=== PATIENT | male | born 1990 | race African-American/Black ===

== ENCOUNTER 2017-12-21 08:26 | Emergency (ER) | payer OTHER ==
[2017-12-21 08:37] VITALS: BP 137/64; PULSE 66; RESP 18; TEMP 98.3
--- NOTE | 2017-12-21 08:55 | ED ---
General Adult HPI - General Chief complaint: Eye Problems Stated complaint: FB in rt eye Time Seen by Provider: 12/21/17 08:44 Source: patient, RN notes reviewed Mode of arrival: ambulatory Limitations: no limitations - History of Present Illness Initial comments: Patient 27-year-old male presented to the emergency room today with a chief complaint of some irritation to the left eye. He notes last night was at home watching TV. Patient states he tried to wash out. He does admit to a foreign body sensation. Was noted to some drainage and crusting over the eyelashes this morning. Patient denies any other complaints or symptoms. He denies any fever or chills. Denies any cough congestion, rhinorrhea, chest pain, abdominal pain, back pain. - Related Data Previous Rx's Medication Instructions Recorded Tobramycin 0.3% Ophth Soln [Tobrex 1 - 2 drop BOTH EYES Q4H 10 Days 12/21/17 0.3% Ophth Soln] ml Allergies Allergy/AdvReac Type Severity Reaction Status Date / Time No Known Allergies Allergy Verified 12/21/17 08:46 Review of Systems ROS Statement: Those systems with pertinent positive or pertinent negative responses have been documented in the HPI. ROS Other: All systems not noted in ROS Statement are negative. Past Medical History Past Medical History: No Reported History History of Any Multi-Drug Resistant Organisms: MRSA Date of last positivie culture/infection: 2007 MDRO Source:: left upper leg Past Surgical History: No Surgical Hx Reported Past Psychological History: No Psychological Hx Reported Smoking Status: Current some day smoker Past Alcohol Use History: Occasional Past Drug Use History: Marijuana General Exam - General Exam Comments Initial Comments: General: The patient is awake and alert, in no distress, and does not appear acutely ill. Eye: Pupils are equal, round and reactive to light, extra-ocular movements are intact. No nystagmus. Mild redness to the left conjunctiva with some green drainage at the corner and over the eyelashes. (Left eye was stained with fluorescein checked with Wood's lamp revealing no foreign bodies. Eyelids inverted.) Ears, nose, mouth and throat: There are moist mucous membranes and no oral lesions. Neck: The neck is supple, there is no tenderness or JVD. Musculoskeletal: Normal ROM, no tenderness. Strength 5/5. Sensation intact. Pulses equal bilaterally 2+. Neurological: A&O x 3. CN II-XII intact, There are no obvious motor or sensory deficits. Coordination appears grossly intact. Speech is normal. Skin: Skin is warm and dry and no rashes or lesions are noted. Psychiatric: Cooperative, appropriate mood & affect, normal judgment. Limitations: no limitations Course Vital Signs 12/21/17 08:34 Temperature 98.3 F Pulse Rate 66 Respiratory 18 Rate Blood Pressure 137/64 O2 Sat by Pulse 98 Oximetry Medical Decision Making - Medical Decision Making Patient's exam consistent with conjunctivitis. Will be started on eyedrops. Is advised follow-up with wildlife technician there is no improvement over the next 2 days. Advised to use drops to the right eye if symptoms begin in that eye as well. Advised return for any other concerns. Disposition Clinical Impression: Acute conjunctivitis Disposition: HOME SELF-CARE Condition: Good Instructions: Conjunctivitis (ED) Additional Instructions: Please use medication as discussed. Please follow-up with ophthalmology/family doctor in the next 2 days of symptoms have not improved. Please return to emergency room if the symptoms increase or worsen or for any other concerns. Prescriptions: Tobramycin 0.3% Ophth Soln [Tobrex 0.3% Ophth Soln] 1 - 2 drop BOTH EYES Q4H 10 Days ml Is patient prescribed a controlled substance at d/c from ED?: No Referrals: Brian Miller DO [Primary Care Provider] - 1-2 days Edna Amado MD [STAFF PHYSICIAN] - 1-2 days Time of Disposition: 08:53
== END 2017-12-21 09:05 | disposition home or self-care (01) ==
LOC: EC 08:26
DX: H10.32 Unspecified acute conjunctivitis, left eye (principal); F17.200 Nicotine dependence, unspecified, uncomplicated; Z86.14 Personal history of Methicillin resistant Staphylococcus aureus infection
CPT/HCPCS: 99283

== ENCOUNTER 2018-09-02 03:49 | Emergency (ER) | payer OTHER ==
[2018-09-02] MEDS ORDERED: HYDROcodone/APAP 5-325MG 1 EACH TAB PO STA (04:22)
--- NOTE | 2018-09-02 04:26 | ED ---
General Adult HPI - General Chief complaint: Extremity Problem,Nontraumatic Stated complaint: hip pain/back pain Time Seen by Provider: 09/02/18 03:59 Source: patient Mode of arrival: ambulatory Limitations: no limitations - Related Data Previous Rx's Medication Instructions Recorded Tobramycin 0.3% Ophth Soln [Tobrex 1 - 2 drop BOTH EYES Q4H 10 Days 12/21/17 0.3% Ophth Soln] ml HYDROcodone/APAP 5-325MG [[place] 1 tab PO Q6HR PRN 3 Days #6 tab 09/02/18 5-325] Allergies Allergy/AdvReac Type Severity Reaction Status Date / Time No Known Allergies Allergy Verified 09/02/18 03:56 Review of Systems ROS Statement: Those systems with pertinent positive or pertinent negative responses have been documented in the HPI. ROS Other: All systems not noted in ROS Statement are negative. Past Medical History Past Medical History: No Reported History History of Any Multi-Drug Resistant Organisms: MRSA Date of last positivie culture/infection: 2007 MDRO Source:: left upper leg Past Surgical History: No Surgical Hx Reported Past Psychological History: No Psychological Hx Reported Smoking Status: Current some day smoker Past Alcohol Use History: Occasional Past Drug Use History: Marijuana General Exam Limitations: no limitations Course Vital Signs 09/02/18 03:54 Temperature 97.9 F Pulse Rate 84 Respiratory 18 Rate Blood Pressure 136/81 O2 Sat by Pulse 99 Oximetry Medical Decision Making - Medical Decision Making 36-year-old -[place] male in no significant past medical history presents with left hip pain. Dictation was produced using [employer] dictation software. please excuse any grammatical, word or spelling errors. Chief Complaint: 36-year-old -Pakistani male in no significant past medical history presents with left hip pain. Patient has been evaluated for hip pain in the past. He states that he had an x-ray in the past showing His Left Hip. Patient States His Symptoms Are Severe. Denies Any Inciting Traumatic Event. Patient States He Was Walking around His House When He Immediately [place] His Left Hip started hurting. He fell to the ground History of Present Illness: 36-year-old -[place] male in no significant past medical history presents with left hip pain. Patient has been evaluated for hip pain in the past. He states that he had an x-ray in the past showing His Left Hip. Patient States His Symptoms Are Severe. Denies Any Inciting Traumatic Event. Patient States He Was Walking around His House When He Immediately [place] His Left Hip started hurting. He fell to the ground. The ROS documented in this emergency department record has been reviewed and confirmed by me. Those systems with pertinent positive or negative responses have been documented in the HPI. All other systems are other negative and/or noncontributory. PHYSICAL EXAM: General Impression: Alert and oriented x3, acute distress secondary to pain HEENT: Normocephalic atraumatic, extra-ocular movements intact, pupils equal and reactive to light bilaterally, mucous membranes moist. Cardiovascular: Heart regular rate and rhythm, S1&S2 audible, no murmurs, rubs or gallops Chest: Lungs clear to auscultation bilaterally, no rhonchi, no wheeze, no rales Abdomen: Bowel sounds present, abdomen soft, non-tender, non-distended, no organomegaly Musculoskeletal: Pulses present and equal in all extremities, no peripheral edema, tenderness to palpation over the left gluteal area Motor: Power 5/5 bilaterally, no focal deficits noted Neurological: CN II-XII grossly intact, no focal motor or sensory deficits noted Skin: Intact with no visualized rashes Psych: Normal affect and mood ED course: 28-year-old -[place] male presents with left hip pain. Vital signs upon arrival are within acceptable limits. Clinical examination is consistent with hip strain. Patient given [place] and Toradol. Patient's symptoms are mildly improved however he said some pain. Computed tomography scan of the hip shows no acute processes. Patient prescription for crutches, analgesic oral medications. Patient also given a work note. He is advised to rest, and ice the area. Disposition Clinical Impression: Hip strain Disposition: HOME SELF-CARE Condition: Good Instructions: Hip Pain (ED) Prescriptions: HYDROcodone/APAP 5-325MG [[place] 5-325] 1 tab PO Q6HR PRN 3 Days #6 tab PRN Reason: Severe Pain Is patient prescribed a controlled substance at d/c from ED?: Yes Referrals: Brian Milelr DO [Primary Care Provider] - 1-2 days Time of Disposition: 06:07
[2018-09-02] MEDS ORDERED: KETOROLAC 30 MG/ML 1 ML VIAL IM STA (04:58)
--- NOTE | 2018-09-02 05:44 | CT ---
EXAMINATION TYPE: CT hip LT wo con DATE OF EXAM: 09/02/2018 COMPARISON: No HISTORY: Left hip pain. No known injury. CT DLP: 451.5 mGycm Automated exposure control for dose reduction was used. FINDINGS: Multiple axial sections were obtained from the mid ileum to the mid shaft of the femur with no contra st. The acetabulum appears intact. Proximal femur and hip joint appear intact. There is no evidence o f a soft tissue mass. There is no evidence of hip dysplasia. I see no bony destructive process. The l eft sacroiliac joint appears normal. IMPRESSION: NORMAL CT SCAN OF THE LEFT HIP JOINT.
[2018-09-02 07:19] VITALS: BP 93/55; PULSE 80; RESP 16; TEMP 98.3
== END 2018-09-02 06:57 | disposition home or self-care (01) ==
LOC: EC 03:49
DX: S76.012A Strain of muscle, fascia and tendon of left hip, initial encounter (principal); F17.200 Nicotine dependence, unspecified, uncomplicated; Z86.14 Personal history of Methicillin resistant Staphylococcus aureus infection; W19.XXXA Unspecified fall, initial encounter; Y93.01 Activity, walking, marching and hiking; Y92.009 Unspecified place in unspecified non-institutional (private) residence as the place of occurrence of the external cause
CPT/HCPCS: 73700; 99283; 96372; J1885

== ENCOUNTER 2018-11-04 08:32 | Day surgery (SDC) | payer OTHER ==
[2018-10-31 10:16] VITALS: BMI 23.7
[~2018-11-04 08:32] MED LIST: LACTATED RINGERS 1,000 ML IV SCH; LIDOCAINE 1% 20 ML VIAL (10MG/ML) FOR IV START INTRADERMA PRN
[2018-11-04 08:42] VITALS: TEMP 98.3
[2018-11-04] MEDS ORDERED: LACTATED RINGERS 1,000 ML IV ONE (08:42)
[2018-11-04] MEDS ORDERED: MIDAZOLAM 2 MG/2 ML VIAL ONE (08:53)
[2018-11-04] MEDS ORDERED: fentaNYL (PF) 50 MCG/ML 2 ML AMP ONE (08:53)
[2018-11-04] MEDS ORDERED: PROPOFOL 10 MG/ML 20 ML VIAL IV ONE (08:53)
[2018-11-04] MEDS ORDERED: LIDOCAINE 1% INJ 10MG/ML (20 ML MDV) ONE (08:53)
--- NOTE | 2018-11-04 08:57 | P.GSHP ---
History of Present Illness H&P Date: 11/04/18 Chief Complaint: GERD, abdominal pain This is a 28-year-old male who presents today for EGD and colonoscopy. Patient points of GERD. He is also complaints of abdominal pain. The abdominal pain is located electrocautery and epigastric area. He denies any rectal bleeding. Past Medical History Past Medical History: No Reported History Additional Past Medical History / Comment(s): abdominal pain History of Any Multi-Drug Resistant Organisms: MRSA Date of last positivie culture/infection: 2007 MDRO Source:: left upper leg Past Surgical History: No Surgical Hx Reported Past Anesthesia/Blood Transfusion Reactions: No Reported Reaction Additional Past Anesthesia/Blood Transfusion Reaction / Comment(s): no anesthesia prior Smoking Status: Current some day smoker - Past Family History Mother Family Medical History: Unable to Obtain Additional Family Medical History / Comment(s): patient was adopted Medications and Allergies Home Medications Medication Instructions Recorded Confirmed Type No Known Home Medications 10/31/18 10/31/18 History Allergies Allergy/AdvReac Type Severity Reaction Status Date / Time No Known Allergies Allergy Verified 10/31/18 10:14 Surgical - Exam Vital Signs Temp Pulse Resp BP Pulse Ox 98.3 F 71 18 129/61 95 11/04/18 08:41 11/04/18 08:41 11/04/18 08:41 11/04/18 08:41 11/04/18 08:41 - General well developed, well nourished, no distress - Eyes PERRL - ENT normal pinna - Neck no masses - Respiratory normal expansion - Cardiovascular Rhythm: regular - Abdomen Abdomen: soft, non tender Assessment and Plan Assessment: GERD, dull pain. We'll perform EGD and colonoscopy.
--- NOTE | 2018-11-04 09:15 | P.OP ---
Date of Procedure: 11/04/18 Preoperative Diagnosis: GERD Abdominal pain Postoperative Diagnosis: Sliding hiatal hernia Mild esophagitis Mild gastritis Normal colon Procedure(s) Performed: EGD Colonoscopy Anesthesia: MAC Surgeon: Adria Espinoza Pathology: other (Antrum, esophagus) Condition: stable Disposition: PACU Description of Procedure: PROCEDURE: The patient was placed on the endoscopy table in the lateral position. Digital rectal examination was performed which revealed no abnormalities. The prostate was symmetrical without nodules. Flexible colonoscope was then placed in the patient's anus and passed throughout the entire colon. The ileocecal valve was visualized. The cecum, ascending, transverse, descending and sigmoid colon were normal. The rectum was normal as well. There were no masses, polyps or diverticula noted in the entire colon. Next, the gastroscope placed oropharynx and passed in the esophagus and into the stomach. Scope was then placed through the pylorus. The first and second portion of the duodenum appeared normal. Scope was then brought back the antrum and this appeared mildly inflamed. A biopsies was performed. The scope was then retroflexed and the remainder of the stomach appeared normal. There was a small sliding hiatal hernia. The GE junction was at 39 cm. The distal esophagus was minimal inflamed a biopsies performed. The proximal esophagus appeared normal. Scope was withdrawn for patient.
[2018-11-04 09:24] VITALS: RESP 16
[2018-11-04 09:52] VITALS: BP 110/61; PULSE 53
== END 2018-11-04 10:05 | disposition home or self-care (01) ==
LOC: ORWHC2ENDO 08:32
PROVIDERS: ATTEND Surgery
DX: K29.50 Unspecified chronic gastritis without bleeding (principal); K44.9 Diaphragmatic hernia without obstruction or gangrene; K21.0 Gastro-esophageal reflux disease with esophagitis; F17.200 Nicotine dependence, unspecified, uncomplicated; Z86.14 Personal history of Methicillin resistant Staphylococcus aureus infection
CPT/HCPCS: 88305; 45378; 43239; J2250; J2001; J3010; J2704

== ENCOUNTER 2018-12-12 08:06 | Inpatient (IN) | payer OTHER ==
[~2018-12-12 08:06] MED LIST changes: +DEXAMETHASONE SOD PHOSPHATE 10 MG/ML 1 ML VIAL IV ONE; +HEPARIN SODIUM,PORCINE 5,000 UNIT/ML 1 ML VIAL SQ ONE; -LACTATED RINGERS 1,000 ML IV SCH; +ONDANSETRON 4 MG/2 ML VIAL IVP ONE; +Pre Op ABX Message 1 EACH MISC MISCELLANE ONE; +SCOPOLAMINE 1.5MG/72HR PATCH TRANSDERM ONE; +ceFAZolin IN SWFI 2 GM/20 ML SYRINGE IVP ONE
[2018-12-12] MEDS: LACTATED RINGERS 1,000 ML IV SCH ×2 (08:35→23:33)
--- NOTE | 2018-12-12 09:19 | P.GSHP ---
History of Present Illness H&P Date: 12/12/18 Chief Complaint: GERD This is a 28-year-old male referred from Dr. Brian Miller. The patient has had long-standing problems with reflux esophagitis. The patient underwent recent EGD is found have evidence of esophagitis. Patient has been well informed on the procedure of laparoscopic Faye fundoplication. The patient is aware the risk of the conversion to the open procedure, risk of injury to the stomach, liver and spleen. The patient is also a risk of recurrent GERD and dysphagia symptoms. The patient understands there is a postoperative diet of full liquids for 2 weeks after surgery. Past Medical History Past Medical History: No Reported History Additional Past Medical History / Comment(s): abdominal pain History of Any Multi-Drug Resistant Organisms: MRSA Date of last positivie culture/infection: 2007 MDRO Source:: left upper leg Past Surgical History: No Surgical Hx Reported Past Anesthesia/Blood Transfusion Reactions: No Reported Reaction Additional Past Anesthesia/Blood Transfusion Reaction / Comment(s): no anesthesia prior Smoking Status: Current some day smoker - Past Family History Mother Family Medical History: Unable to Obtain Additional Family Medical History / Comment(s): patient was adopted Medications and Allergies Home Medications Medication Instructions Recorded Confirmed Type No Known Home Medications 10/31/18 12/12/18 History Allergies Allergy/AdvReac Type Severity Reaction Status Date / Time No Known Allergies Allergy Verified 12/12/18 08:17 Surgical - Exam Vital Signs Temp Pulse Resp BP Pulse Ox 98.0 F 73 16 127/63 98 12/12/18 08:29 12/12/18 08:29 12/12/18 08:29 12/12/18 08:29 12/12/18 08:29 - General well developed, well nourished, no distress - Eyes PERRL - ENT normal pinna - Neck no masses - Respiratory normal expansion - Cardiovascular Rhythm: regular - Abdomen Abdomen: soft, non tender Assessment and Plan Assessment: GERD. We'll perform laparoscopic Faye fundoplication.
[2018-12-12] MEDS ORDERED: BUPIVACAIN-EPI 0.25%-1:200,000 30 ML VIAL SQ ONE ×2 (09:47→10:29)
[2018-12-12] MEDS ORDERED: ROCURONIUM BROMIDE 10 MG/ML 10 ML VIAL IV ONE (09:58)
[2018-12-12] MEDS ORDERED: PROPOFOL 10 MG/ML 20 ML VIAL IV ONE (09:58)
[2018-12-12] MEDS ORDERED: fentaNYL (PF) 50 MCG/ML 2 ML AMP ONE (09:58)
[2018-12-12] MEDS ORDERED: GLYCOPYRROLATE 0.2 MG/ML 2 ML VIAL ONE (09:58)
[2018-12-12] MEDS ORDERED: NEOSTIGMINE 1 MG/ML 10 ML VIAL ONE (09:58)
[2018-12-12] MEDS ORDERED: SUCCINYLCHOLINE CHLORIDE 100 MG/5 ML SYR IV ONE (09:58)
[2018-12-12] MEDS ORDERED: LIDOCAINE 1% INJ 10MG/ML (20 ML MDV) ONE (09:58)
[2018-12-12] MEDS ORDERED: MIDAZOLAM 2 MG/2 ML VIAL ONE (09:58)
[2018-12-12] MEDS ORDERED: LIDOCAINE 2%-EPI 1:200,000 20 ML VIAL SQ ONE (10:29)
[2018-12-12] MEDS ORDERED: LACTATED RINGERS 1,000 ML IV ONE (11:08)
--- NOTE | 2018-12-12 11:08 | P.OP ---
Date of Procedure: 12/12/18 Preoperative Diagnosis: GERD Postoperative Diagnosis: GERD Procedure(s) Performed: Laparoscopic Faye fundal plication Anesthesia: AMPARO Surgeon: Adria Espinoza Estimated Blood Loss (ml): 5 Pathology: none sent Condition: stable Disposition: PACU Description of Procedure: The patient was placed on the operating table in the supine position. The patient received general anesthesia. And was placed in dorsal lithotomy position. The patient was prepped and draped in the usual sterile fashion. The skin incision sites were anesthetized with 1% local Xylocaine. The skin was incised in the left periumbilical area and then using a blade less 5 mm trocar under direct visualization panel cavity was entered. After adequate insufflation the laparoscope was then placed into the peritoneal cavity. Next a 5 mm trochars placed in the right epigastric position. Another 5 millimeter trocar the right lateral position. Another 5 millimeter trocar in the left lateral position a 5 mm trocar is placed in the left epigastric position. And then the initial 5 mm trocar was exchanged for a 10 mm trocar. The left lateral lobe liver was retracted. The hernia was seen. The crural defect was then dissected using the Harmonic scissors device. A 360 crural dissection was p erformed the esophagus stomach was reduced back into the peritoneal Cavity. The crural defect was then closed using 2-0 Ethibond suture. Next the fundus of the stomach was mobilized using the [place] scissors device. and then a 58-Syrian bougie dilator was placed oropharynx passed into the esophagus and stomach the fundal plication wrap was then performed by grasping the fundus posteriorly and bringing it around the esophagus and stomach fundoplication was then performed using 2-0 Ethibond suture. Care was taken that the fundal location rested over top of the intra-abdominal esophagus. There was no injury seen to the stomach or esophagus. The dilator was then withdrawn. The abdomen was irrigated there is no bleeding seen. The trochars were then withdrawn and then skin incision sites were closed using 3-0 Monocryl suture Steri-Strips are applied. Patient thought procedure well and sent to recovery room in stable condition.
[2018-12-12] MEDS ORDERED: ONDANSETRON 4 MG/2 ML VIAL IVP PRN (11:09)
[2018-12-12] MEDS: HYDROmorphone 0.5 MG/0.5 ML SYRINGE IVP PRN ×4 (11:46→14:46)
--- NOTE | 2018-12-12 14:37 | FL ---
EXAMINATION TYPE: FL esophagus cervic/pharynx DATE OF EXAM: 12/12/2018 CLINICAL HISTORY: Status post Faye fundoplication TECHNIQUE: Esophagram is performed utilizing Isovue 300. A total of 1.32 minutes of fluoroscopic time was utilized during procedure. 27 fluoroscopic images were saved during the examination. FINDINGS: The patient swallowed contrast without difficulty. Upper esophageal peristalsis and motili ty are within normal limits. However there is marked delayed transit through the surgical site at the gastroesophageal junction with only diminutive stream of flow after prolonged imaging time. There is no evidence of contrast extravasation to suggest leak. No persistent hiatal hernia is seen. Patient describes abdominal pain. IMPRESSION: 1. Severe delay at the postoperative site/gastroesophageal junction likely related to postoperative e meme. The patient did experience pain and only diminutive stream of flow is seen through the postsurg ical site after prolonged imaging time. 2. No evidence of leak at this time status post Hakan fundoplication surgery earlier today.
[2018-12-12] MEDS ORDERED: DEXAMETHASONE SOD PHOSPHATE 4 MG/ML 1 ML VIAL IV PRN (16:11)
[2018-12-12] MEDS: HYDROmorphone 1 MG/ML 1 ML SYRINGE IVP PRN ×2 (18:40→21:43)
[2018-12-12] MEDS: D5-0.45% NACL WITH KCL 20MEQ/L 1,000 ML IV SCH ×2 (18:42→23:32)
[2018-12-12] MEDS: DEXAMETHASONE SOD PHOSPHATE 4 MG/ML 1 ML VIAL IV SCH (20:52)
[2018-12-13] MEDS: DEXAMETHASONE SOD PHOSPHATE 4 MG/ML 1 ML VIAL IV SCH ×6 (00:47→19:34)
[2018-12-13] MEDS: HYDROmorphone 1 MG/ML 1 ML SYRINGE IVP PRN ×6 (00:47→21:51)
[2018-12-13] MEDS: HEPARIN SODIUM,PORCINE 5,000 UNIT/ML 1 ML VIAL SQ SCH ×4 (00:47→15:02)
[2018-12-13] MEDS: D5-0.45% NACL WITH KCL 20MEQ/L 1,000 ML IV SCH (04:38)
--- NOTE | 2018-12-13 08:56 | FL ---
Single contrast esophagram EXAMINATION TYPE: FL UGI w esophagus DATE OF EXAM: 12/13/2018 8:50 AM COMPARISON: December 12, 2018 CLINICAL HISTORY: Status post Hakan fundoplication s/p hakan x [address] Day. 1.10 min fl time. 50 ml [id number] lot#[id number]. EXP Aug 2021 The patient ingested contrast without difficulty or delay. Noted are changes of Hakan fundoplicatio n. Again noted is evidence for incomplete obstruction at the level of Hakan fundoplication felt to b e moderate to severe in degree. Overall no significant change when compared to prior examination. Sma ll amount of free air or redemonstrated. IMPRESSION: Again noted is evidence for incomplete obstruction at the level of Hakan fundoplication felt to be moderate to severe in degree. Overall no significant change when compared to prior examina tion.
--- NOTE | 2018-12-13 09:10 | P.PN ---
Subjective Progress Note Date: 12/13/18 CHIEF COMPLAINT: GERD HISTORY OF PRESENT ILLNESS: 28-year-old male who underwent laparoscopic Faye fundoplication by Dr. Espinoza on 12/12/2018. POD #1. Patient underwent esophagram yesterday revealing obstruction. Patient was started on Decadron 4 mg IV every 4 hours. Patient states he has been tolerating a small amount of ice chips but states it takes a while for it to go down and he feels that sitting in his chest. Repeat esophagram this morning reveals persistent incomplete obstruction. PHYSICAL EXAM: VITAL SIGNS: Reviewed. GENERAL: Well-developed in no acute distress. HEENT: No sclera icterus. Extraocular movements grossly intact. Moist buccal mucosa. Head is atraumatic, normocephalic. ABDOMEN: Soft. Nondistended. Nontender. Laparoscopic incision sites clean dry and intact. NEUROLOGIC: Alert and oriented. Cranial nerves II through XII grossly intact. ASSESSMENT: 1. GERD, status post laparoscopic Faye fundoplication PLAN: 1. Continue ice chips as tolerated. Continue IV fluids at 100cc/hr. 2. Pain control. Continue dilaudid. 3. Incentive spirometry 4. Activity as tolerated 5. Continue Decadron. Add Reglan. 6. Discharge held today due to inability to tolerate liquids and risk for dehydration secondary to persistent incomplete obstruction secondary to postoperative edema. Continue Decadron. Repeat esophagram tomorrow morning. Nurse practitioner note has been reviewed by physician. Signing provider agrees with the documented findings, assessment, and plan of care. Objective - Vital Signs Vital signs: Vital Signs Temp 97.7 F 12/13/18 07:00 Pulse 59 L 12/13/18 07:00 Resp 16 12/13/18 07:00 BP 105/68 12/13/18 07:00 Pulse Ox 98 12/13/18 07:00 Intake & Output 12/12/18 12/13/18 12/13/18 18:59 06:59 18:59 Intake Total 1800 2330 Output Total 10 Balance 1790 2330 Intake: IV 1800 Intake, IV Titration 1250 Amount D5-0.45% NaCl with KCl 1250 20Meq/l 1,000 ml @ 125 mls/hr IV .Q8H VANESSA Rx#: [id number] Oral 1080 Output: Estimated Blood Loss 10 Other: Voiding Method Toilet # Voids 3
[2018-12-13] MEDS: SODIUM CHLORIDE 0.9% 1,000 ML IV SCH ×2 (09:15→19:34)
[2018-12-13] MEDS: METOCLOPRAMIDE 5 MG/ML 2 ML VIAL IVP SCH ×2 (11:14→17:37)
[2018-12-14] MEDS: METOCLOPRAMIDE 5 MG/ML 2 ML VIAL IVP SCH ×5 (00:33→23:11)
[2018-12-14] MEDS: HEPARIN SODIUM,PORCINE 5,000 UNIT/ML 1 ML VIAL SQ SCH ×4 (00:33→23:12)
[2018-12-14] MEDS: DEXAMETHASONE SOD PHOSPHATE 4 MG/ML 1 ML VIAL IV SCH ×7 (00:33→23:11)
[2018-12-14] MEDS: SODIUM CHLORIDE 0.9% 1,000 ML IV SCH ×2 (04:53→13:38)
--- NOTE | 2018-12-14 09:09 | FL ---
EXAMINATION TYPE: FL UGI w esophagus DATE OF EXAM: 12/14/2018 COMPARISON: NONE HISTORY: Status post Domenica fundoplication TECHNIQUE: A single contrast UGI study is performed. FINDINGS: The patient drank contrast with some discomfort due to esophageal spasm. There is moderate holdup of egress of barium from the esophagus into the stomach. There is a small amount of free air. The ligament of Treitz is in the normal location. No extravasation was identified. IMPRESSION: STATUS POST DOMENICA FUNDOPLICATION.
[2018-12-14] MEDS: HYDROmorphone 1 MG/ML 1 ML SYRINGE IVP PRN ×5 (09:21→19:12)
--- NOTE | 2018-12-14 16:17 | P.PN ---
Subjective Progress Note Date: 12/14/18 CHIEF COMPLAINT: Status post Faye fundoplasty HISTORY OF PRESENT ILLNESS: The patient is a 28-year-old male status post Faye fundoplasty, 12/12/18. He still reports chest pain and dysphagia with swallowing. He is currently on ice chips. ROS: No fevers or chills. No weakness. PHYSICAL EXAM: VITAL SIGNS: Reviewed CONSTITUTIONAL: Well developed and in no acute distress. EYES: Conjuctivae without sclera icterus. Extraocular movements grossly intact. HEAD, EARS, NOSE, THROAT: Moist buccal mucosa. Head is atraumatic, normocephalic. Hears conversational speech. No nasal drainage. NECK: Supple. No thyroidomegaly. RESPIRATORY: Non-labored respirations and equal bilateral excursions. CARDIOVASCULAR: Palpable 2+ radial pulses. Regular rate. Regular rhythm. ABDOMEN: Incisions clean dry and intact. Soft. MUSCULOSKELETAL: No gross deformity of the lower extremities noted. No clubbi ng. No cyanosis. SKIN: Good skin turgor. Well perfused. NEUROLOGIC: Cranial nerves I through XII grossly intact. PSYCH: Appropriate affect. Alert and oriented to person, place and time. CLINCAL LABS: None STUDIES: Upper GI demonstrates an obstruction along the GE junction ASSESSMENT: 1. Status post Faye fundoplasty with esophageal obstruction PLAN: 1. Anti-spasmodic medication Levsin for esophageal spasms 2. Simethicone drops for gas 3. Continue ice chips Objective - Vital Signs Vital signs: Vital Signs Temp 97.4 F L 12/14/18 14:19 Pulse 58 L 12/14/18 14:19 Resp 16 12/14/18 14:19 BP 116/71 12/14/18 14:19 Pulse Ox 97 12/14/18 14:19 Intake & Output 12/13/18 12/14/18 12/14/18 18:59 06:59 18:59 Intake Total 1480 800 Balance 1480 800 Weight 79 kg Intake: IV 800 Sodium Chloride 0.9% 1, 800 000 ml @ 100 mls/hr IV . Q10H VANESSA Rx#:[id number] Intake, IV Titration 1000 Amount Sodium Chloride 0.9% 1, 1000 000 ml @ 100 mls/hr IV . Q10H VANESSA Rx#:[id number] Oral 480 Other: Voiding Method Toilet Toilet # Voids 1 2 1
[2018-12-14 16:50] LABS: Anion Gap 7 mmol/L; Blood Urea Nitrogen 16 mg/dL (9-20); Calcium 9.5 mg/dL (8.4-10.2); Carbon Dioxide 27 mmol/L (22-30); Chloride 104 mmol/L (98-107); Glucose 100 mg/dL (74-99); Magnesium 1.9 mg/dL (1.6-2.3); Phosphorus 3.6 mg/dL (2.5-4.5); Potassium 4.3 mmol/L (3.5-5.1); Sodium 138 mmol/L (137-145)
[2018-12-14] MEDS: SIMETHICONE 40 MG/0.6 ML DROPS 2,000 MG/30 ML BOTTLE PO SCH ×2 (17:48→21:10)
[2018-12-14] MEDS: HYOSCYAMINE ORAL DROPS 1.875 MG/15 ML BOTTLE PO SCH ×3 (17:49→23:10)
[2018-12-15] MEDS: HYOSCYAMINE ORAL DROPS 1.875 MG/15 ML BOTTLE PO SCH ×6 (05:39→23:37)
[2018-12-15] MEDS: METOCLOPRAMIDE 5 MG/ML 2 ML VIAL IVP SCH ×5 (05:40→23:37)
[2018-12-15] MEDS: DEXAMETHASONE SOD PHOSPHATE 4 MG/ML 1 ML VIAL IV SCH ×6 (05:40→23:37)
[2018-12-15] MEDS: SODIUM CHLORIDE 0.9% 1,000 ML IV SCH ×3 (05:43→18:11)
[2018-12-15] MEDS: SIMETHICONE 40 MG/0.6 ML DROPS 2,000 MG/30 ML BOTTLE PO SCH ×4 (08:40→21:46)
[2018-12-15] MEDS: HEPARIN SODIUM,PORCINE 5,000 UNIT/ML 1 ML VIAL SQ SCH ×3 (08:41→23:37)
[2018-12-15] MEDS: HYDROmorphone 1 MG/ML 1 ML SYRINGE IVP PRN ×3 (09:42→15:31)
--- NOTE | 2018-12-15 11:41 | P.PN ---
Subjective Progress Note Date: 12/15/18 CHIEF COMPLAINT: Status post Faye fundoplasty HISTORY OF PRESENT ILLNESS: The patient is a 28-year-old male status post Faye fundoplasty, 12/12/18. He had edema from his fundoplication including int ermittent esophageal obstruction. He was placed on Levsin and simethicone drops. Obstruction now resolved. No further reports of chest pain or dysphasia. ROS: No fevers or chills. No weakness. No abdominal pain PHYSICAL EXAM: VITAL SIGNS: Reviewed CONSTITUTIONAL: Well developed and in no acute distress. EYES: Conjuctivae without sclera icterus. Extraocular movements grossly intact. HEAD, EARS, NOSE, THROAT: Moist buccal mucosa. Head is atraumatic, normocephalic. Hears conversational speech. No nasal drainage. NECK: Supple. No thyroidomegaly. RESPIRATORY: Non-labored respirations and equal bilateral excursions. CARDIOVASCULAR: Palpable 2+ radial pulses. Regular rate. Regular rhythm. ABDOMEN: Incisions clean dry and intact. Soft. MUSCULOSKELETAL: No gross deformity of the lower extremities noted. No clubbing. No cyanosis. SKIN: Good skin turgor. Well perfused. NEUROLOGIC: Cranial nerves I through XII grossly intact. PSYCH: Appropriate affect. Alert and oriented to person, place and time. CLINCAL LABS: Labs within normal limits ASSESSMENT: 1. Status post Faye fundoplasty with esophageal obstruction PLAN: 1. Continue antispasmodic medication including simethicone 2. Will start clear liquid diet Faye diet 3. I personally reviewed the dietitian handout where eggs and soft foods are excluded Objective - Vital Signs Vital signs: Vital Signs Temp 97.7 F 12/15/18 07:00 Pulse 77 12/15/18 07:00 Resp 16 12/15/18 07:00 BP 129/73 12/15/18 07:00 Pulse Ox 98 12/15/18 07:00 Intake & Output 12/14/18 12/15/18 12/15/18 18:59 06:59 18:59 Intake Total 800 1150 Balance 800 1150 Intake: IV 800 1150 Sodium Chloride 0.9% 1, 800 1150 000 ml @ 100 mls/hr IV . Q10H VANESSA Rx#:[id number] Other: Voiding Method Toilet Toilet # Voids 3 - Labs CBC & Chem 7: 12/14/18 16:22 Labs: Abnormal Lab Results - Last 24 Hours (Table) 12/14/18 Range/Units 16:22 Glucose 100 H (74-99) mg/dL
[2018-12-15] MEDS: NICOTINE 21MG/24HR PATCH TRANSDERM SCH (16:26)
[2018-12-16] MEDS: DEXAMETHASONE SOD PHOSPHATE 4 MG/ML 1 ML VIAL IV SCH ×6 (05:08→23:02)
[2018-12-16] MEDS: METOCLOPRAMIDE 5 MG/ML 2 ML VIAL IVP SCH ×4 (05:08→23:01)
[2018-12-16] MEDS: HYOSCYAMINE ORAL DROPS 1.875 MG/15 ML BOTTLE PO SCH ×6 (05:08→23:01)
[2018-12-16] MEDS: SODIUM CHLORIDE 0.9% 1,000 ML IV SCH ×2 (07:45→16:01)
[2018-12-16] MEDS: SIMETHICONE 40 MG/0.6 ML DROPS 2,000 MG/30 ML BOTTLE PO SCH ×4 (07:49→20:19)
[2018-12-16] MEDS: HEPARIN SODIUM,PORCINE 5,000 UNIT/ML 1 ML VIAL SQ SCH ×3 (07:49→23:01)
[2018-12-16] MEDS: NICOTINE 21MG/24HR PATCH TRANSDERM SCH (07:50)
[2018-12-16 10:55] VITALS: BMI 22.9
--- NOTE | 2018-12-16 11:29 | P.PN ---
Subjective Progress Note Date: 12/16/18 CHIEF COMPLAINT: GERD HISTORY OF PRESENT ILLNESS: 28-year-old male who underwent laparoscopic Faye fundoplication by Dr. Espinoza on 12/12/2018. Patient continues to repeat difficulty swallowing. He states it feels like the liquid is just sitting in his chest and takes 30 seconds or a minute for a sip of liquid to go down. He states sometimes he has to burp in order for the liquid to go down. PHYSICAL EXAM: VITAL SIGNS: Reviewed. GENERAL: Well-developed in no acute distress. HEENT: No sclera icterus. Extraocular movements grossly intact. Moist buccal mucosa. Head is atraumatic, normocephalic. ABDOMEN: Soft. Nondistended. Nontender. Laparoscopic incision sites clean dry and intact. NEUROLOGIC: Alert and oriented. Cranial nerves II through XII grossly intact. ASSESSMENT: 1. GERD, status post laparoscopic Faye fundoplication PLAN: 1. Continue IV fluids 2. Continue clear liquid diet 3. Incentive spirometry 4. Activity as tolerated 5. Continue Decadron, Reglan, simethicone drops, and Hyoscyamine drops 6. If no improvement in ability to tolerate liquids, patient may require surgical revision of Faye fundoplication Nurse practitioner note has been reviewed by physician. Signing provider agrees with the documented findings, assessment, and plan of care. Objective - Vital Signs Vital signs: Vital Signs Temp 98.3 F 12/16/18 07:30 Pulse 50 L 12/16/18 07:30 Resp 16 12/16/18 01:05 BP 124/70 12/16/18 07:30 Pulse Ox 96 12/16/18 07:30 Intake & Output 12/15/18 12/16/18 12/16/18 18:59 06:59 18:59 Intake Total 1505 350 Balance 1505 350 Intake: IV 800 Sodium Chloride 0.9% 1, 800 000 ml @ 100 mls/hr IV . Q10H VANESSA Rx#:[id number] Intake, IV Titration 350 Amount Sodium Chloride 0.9% 1, 350 000 ml @ 100 mls/hr IV . Q10H VANESSA Rx#:[id number] Oral 705 Other: Voiding Method Toilet Toilet # Voids 1 1 1 # Bowel Movements 1 - Labs CBC & Chem 7: 12/14/18 16:22
[2018-12-16 19:43] VITALS: RESP 17
[2018-12-17] MEDS: SODIUM CHLORIDE 0.9% 1,000 ML IV SCH ×2 (00:34→11:44)
[2018-12-17] MEDS: METOCLOPRAMIDE 5 MG/ML 2 ML VIAL IVP SCH ×2 (05:11→11:39)
[2018-12-17] MEDS: HYOSCYAMINE ORAL DROPS 1.875 MG/15 ML BOTTLE PO SCH ×3 (05:11→11:39)
[2018-12-17] MEDS: DEXAMETHASONE SOD PHOSPHATE 4 MG/ML 1 ML VIAL IV SCH ×3 (05:11→11:39)
[2018-12-17 07:25] VITALS: BP 113/60; PULSE 52; TEMP 98.2
[2018-12-17] MEDS: NICOTINE 21MG/24HR PATCH TRANSDERM SCH (08:43)
[2018-12-17] MEDS: HEPARIN SODIUM,PORCINE 5,000 UNIT/ML 1 ML VIAL SQ SCH (08:43)
[2018-12-17] MEDS: SIMETHICONE 40 MG/0.6 ML DROPS 2,000 MG/30 ML BOTTLE PO SCH ×2 (08:46→12:10)
--- NOTE | 2018-12-17 13:25 | P.DS ---
Providers Date of admission: 12/14/18 15:59 Expected date of discharge: 12/17/18 Attending physician: Adria Espinoza Primary care physician: Brian Miller Hospital Course: 28-year-old male who underwent laparoscopic Faye fundoplication by Dr. Espinoza on 12/12/2018. Patients hospital stay delayed due to persistent incomplete obstruction and inability to tolerate liquids. This has since resolved and patient is tolerating clear liquid diet. Patient stable for discharge home today. Please see EMR for further hospital course details. Discharge diagnosis: 1. GERD, status post laparoscopic Faye fundoplication Nurse practitioner note has been reviewed by physician. Signing provider agrees with the documented findings, assessment, and plan of care. Plan - Discharge Summary Discharge Rx Participant: Yes New Discharge Prescriptions: New HYDROcodone/APAP [[place] Elixir 7.5-325Mg/15Ml] 15 ml PO Q4HR PRN 3 Days #270 ml PRN Reason: Pain Docusate [Colace] 100 mg PO BID #30 capsule Ondansetron Odt [Zofran Odt] 4 mg PO Q8HR PRN #15 tab PRN Reason: Nausea Simethicone 40 mg/0.6 ml Drops [Mylicon Drops] 40 mg PO QID PRN #30 ml PRN Reason: Gas Discharge Medication List Docusate [Colace] 100 mg PO BID #30 capsule 12/13/18 [Rx] HYDROcodone/APAP [[place] Elixir 7.5-325Mg/15Ml] 15 ml PO Q4HR PRN 3 Days #270 ml 12/13/18 [Rx] Ondansetron Odt [Zofran Odt] 4 mg PO Q8HR PRN #15 tab 12/17/18 [Rx] Simethicone 40 mg/0.6 ml Drops [Mylicon Drops] 40 mg PO QID PRN #30 ml 12/17/18 [Rx] Follow up Appointment(s)/Referral(s): Brian Miller DO [Primary Care Provider] - 1 Week (office will call with appointment time) Adria Espinoza MD [STAFF PHYSICIAN] - 12/31/18 2:30 pm Activity/Diet/Wound Care/Special Instructions: No driving while taking [place] No lifting over 10 pounds You may shower. No soaking or tub baths Very light activity until you are reevaluated at your follow up appointment with your surgeon Liquid diet for two weeks
== END 2018-12-17 14:15 | disposition home or self-care (01) | DRG 327 ==
LOC: OR 08:06 → 4SSUR 11:04 → OR 12-13 02:56 → OBSVTOIN 12-14 15:59
PROVIDERS: ADMIT Surgery; ATTEND Surgery
PROC: 0DV44ZZ Restriction of Esophagogastric Junction, Percutaneous Endoscopic Approach (ICD-10-PCS; principal; 2018-12-12 10:30)
DX: K21.9 Gastro-esophageal reflux disease without esophagitis (principal); K91.89 Other postprocedural complications and disorders of digestive system; K22.2 Esophageal obstruction; F17.200 Nicotine dependence, unspecified, uncomplicated; K46.9 Unspecified abdominal hernia without obstruction or gangrene; Z86.14 Personal history of Methicillin resistant Staphylococcus aureus infection
CPT/HCPCS: 74210; 74240; 80048; 83735; 84100

== ENCOUNTER 2021-02-03 17:17 | Emergency (ER) | payer OTHER ==
[2021-02-03] MEDS ORDERED: FLUORESCEIN STRIPS 1 MG STRIP LEFT EYE ONE (18:08)
[2021-02-03] MEDS ORDERED: PROPARACAINE 0.5% OPHTH DROPS 15 ML BTL LEFT EYE STA (18:08)
[2021-02-03 18:09] VITALS: BP 133/69; PULSE 100; RESP 18; TEMP 98.2
--- NOTE | 2021-02-03 18:33 | ED ---
Eye Problem HPI - General Chief complaint: Eye Problems Stated complaint: Object in eye/[facility] Time Seen by Provider: 02/03/21 18:07 Source: patient Mode of arrival: ambulatory Limitations: no limitations - History of Present Illness Initial comments: Patient is a 30-year-old male presenting to the emergency Department with complaints of irritation to his left eye. 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 He states happened a few hours prior to arrival. States it feels very irritated and feels like something is still in there. He does not wear contacts. He has no further complaints. - Related Data Previous Rx's Medication Instructions Recorded Docusate [Colace] 100 mg PO BID #30 capsule 12/13/18 HYDROcodone/APAP [[place] Elixir 15 ml PO Q4HR PRN 3 Days #270 ml 12/13/18 7.5-325Mg/15Ml] Nicotine 21Mg/24Hr Patch [Habitrol] 1 patch TRANSDERM DAILY #14 patch 12/17/18 Ondansetron Odt [Zofran Odt] 4 mg PO Q8HR PRN #15 tab 12/17/18 Simethicone 40 mg/0.6 ml Drops 40 mg PO QID PRN #30 ml 12/17/18 [Mylicon Drops] Erythromycin Ophth Oint [Romycin 1 applic LEFT EYE QID 5 Days #1 02/03/21 Ophth Oint] tube Allergies Allergy/AdvReac Type Severity Reaction Status Date / Time No Known Allergies Allergy Verified 02/03/21 17:25 Review of Systems ROS Statement: Those systems with pertinent positive or pertinent negative responses have been documented in the HPI. ROS Other: All systems not noted in ROS Statement are negative. Past Medical History Past Medical History: No Reported History Additional Past Medical History / Comment(s): abdominal pain History of Any Multi-Drug Resistant Organisms: MRSA Date of last positivie culture/infection: 2007 MDRO Source:: left upper leg Past Surgical History: Hernia Repair Past Anesthesia/Blood Transfusion Reactions: No Reported Reaction Additional Past Anesthesia/Blood Transfusion Reaction / Comment(s): no anesthesia prior Past Psychological History: No Psychological Hx Reported Smoking Status: Current every day smoker Past Alcohol Use History: Occasional Past Drug Use History: Marijuana - Past Family History Mother Family Medical History: Unable to Obtain Additional Family Medical History / Comment(s): patient was adopted General Exam - General Exam Comments Initial Comments: GENERAL: Patient is well-developed and well-nourished. Patient is nontoxic and in no acute distress. HEAD: Atraumatic, normocephalic. EYES: Pupils equal round and reactive to light, extraocular movements intact, sclera anicteric. Eyelids were unremarkable. Left eye is slightly injected, no foreign body seen. Fluorescein stain does reveal a small abrasion at the 1 o'clock position. ENT: Nares patent, oropharynx clear without exudates. Moist mucous membranes. NECK: Normal range of motion, supple without lymphadenopathy or JVD. LUNGS: Unlabored respirations. Breath sounds clear to auscultation bilaterally and equal. No wheezes rales or rhonchi. HEART: Regular rate and rhythm without murmurs, rubs or gallops. ABDOMEN: Soft, nontender, normoactive bowel sounds. No guarding, no rebound. No masses appreciated. : Deferred MUSCULOSKELETAL: Normal extremities with adequate strength and normal range of motion, no pitting or edema. No clubbing or cyanosis. SKIN: Warm, Dry, normal turgor, no rashes or lesions noted. Limitations: no limitations Course Vital Signs 02/03/21 17:25 Temperature 98.2 F Pulse Rate 100 Respiratory 18 Rate Blood Pressure 133/69 O2 Sat by Pulse 100 Oximetry Medical Decision Making - Medical Decision Making Patient is a 30-year-old male here with irritation in his left eye happened a few hours prior to arrival. He believes a piece of concrete make it flew into his eye. I do not see any foreign bodies of the left eye, he does have a very small corneal abrasion at the 1 o'clock position. I also flushed out his eye. I will give him erythromycin ointment, he can follow up with his doctor. Return parameters were discussed with him he verbalized understanding. Disposition Clinical Impression: Left corneal abrasion Disposition: HOME SELF-CARE Condition: Stable Instructions (If sedation given, give patient instructions): Corneal Abrasion (ED) Additional Instructions: Please return to the Emergency Department if symptoms worsen or any other concerns. Use antibiotic ointment as discussed in the left eye. Follow-up with ophthalmology if symptoms persist. Prescriptions: Erythromycin Ophth Oint [Romycin Ophth Oint] 1 applic LEFT EYE QID 5 Days #1 tube Is patient prescribed a controlled substance at d/c from ED?: No Referrals: Brian Miller DO [Primary Care Provider] - 1-2 days Time of Disposition: 18:32
== END 2021-02-03 18:56 | disposition home or self-care (01) ==
LOC: EC 17:17
DX: S05.02XA Injury of conjunctiva and corneal abrasion without foreign body, left eye, initial encounter (principal); F17.200 Nicotine dependence, unspecified, uncomplicated; F12.90 Cannabis use, unspecified, uncomplicated; Z79.891 Long term (current) use of opiate analgesic; Z79.899 Other long term (current) drug therapy; W22.8XXA Striking against or struck by other objects, initial encounter; Y99.0 Civilian activity done for income or pay
CPT/HCPCS: 99283

== ENCOUNTER 2021-07-03 18:55 | Emergency (ER) | payer BC, OTHER ==
[2021-07-03] MEDS ORDERED: ONDANSETRON 4 MG/2 ML VIAL IVP STA (22:07)
[2021-07-03] MEDS ORDERED: SODIUM CHLORIDE 0.9% 1,000 ML IV ONE (22:07)
--- NOTE | 2021-07-03 22:19 | ED ---
Abdominal Pain HPI - General Chief Complaint: Abdominal Pain Stated Complaint: post op/vomiting Time Seen by Provider: 07/03/21 21:45 Source: patient Mode of arrival: ambulatory Limitations: no limitations - History of Present Illness Initial Comments: This patient is a 30-year-old man who presents to be evaluated for abdominal pain, nausea and vomiting. The patient states that symptoms started first thing this morning. He began to have vomiting and has been vomiting every 20-30 minutes since that time. There are no episodes of hematemesis or coffee-ground emesis. Patient also has some burning and cramping periumbilical pain that has been present throughout the whole day. He states that this is identical to the symptoms she had prior to having umbilical hernia repair about a year ago here with Dr. Espinoza. Patient states that his last bowel movement was yesterday and was normal. MD Complaint: abdominal pain -: days(s) Location: periumbilical Radiation: none Migration to: no migration Quality: cramping Consistency: constant Improves With: nothing Worsens With: nothing Associated Symptoms: nausea, vomiting - Related Data Previous Rx's Medication Instructions Recorded Docusate [Colace] 100 mg PO BID #30 capsule 12/13/18 HYDROcodone/APAP [[place] Elixir 15 ml PO Q4HR PRN 3 Days #270 ml 12/13/18 7.5-325Mg/15Ml] Nicotine 21Mg/24Hr Patch [Habitrol] 1 patch TRANSDERM DAILY #14 patch 12/17/18 Ondansetron Odt [Zofran Odt] 4 mg PO Q8HR PRN #15 tab 12/17/18 Simethicone 40 mg/0.6 ml Drops 40 mg PO QID PRN #30 ml 12/17/18 [Mylicon Drops] Erythromycin Ophth Oint [Romycin 1 applic LEFT EYE QID 5 Days #1 02/03/21 Ophth Oint] tube Ondansetron Odt [Zofran ODT] 4 mg PO Q8HR PRN #10 tab 07/03/21 Allergies Allergy/AdvReac Type Severity Reaction Status Date / Time No Known Allergies Allergy Verified 07/03/21 20:04 Review of Systems ROS Statement: Those systems with pertinent positive or pertinent negative responses have been documented in the HPI. ROS Other: All systems not noted in ROS Statement are negative. Constitutional: Denies: fever, chills Respiratory: Denies: cough, dyspnea Cardiovascular: Denies: chest pain, palpitations, edema Gastrointestinal: Reports: abdominal pain, nausea, vomiting. Denies: diarrhea, constipation, hematemesis, melena, hematochezia Genitourinary: Denies: dysuria, hematuria, testicular pain Musculoskeletal: Denies: back pain Skin: Denies: rash Neurological: Denies: headache, weakness, numbness Past Medical History Past Medical History: No Reported History Additional Past Medical History / Comment(s): abdominal pain History of Any Multi-Drug Resistant Organisms: MRSA Date of last positivie culture/infection: 2007 MDRO Source:: left upper leg Past Surgical History: Hernia Repair Past Anesthesia/Blood Transfusion Reactions: No Reported Reaction Additional Past Anesthesia/Blood Transfusion Reaction / Comment(s): no anesthesia prior Past Psychological History: No Psychological Hx Reported Smoking Status: Current every day smoker Past Alcohol Use History: Occasional Past Drug Use History: Marijuana - Past Family History Mother Family Medical History: Unable to Obtain Additional Family Medical History / Comment(s): patient was adopted General Exam Limitations: no limitations General appearance: alert, in no apparent distress Head exam: Present: atraumatic, normocephalic Eye exam: Present: normal appearance. Absent: scleral icterus, conjunctival injection ENT exam: Present: normal oropharynx Neck exam: Present: normal inspection Respiratory exam: Present: normal lung sounds bilaterally. Absent: respiratory distress, wheezes, rales, rhonchi, stridor Cardiovascular Exam: Present: regular rate, normal rhythm, normal heart sounds. Absent: systolic murmur, diastolic murmur, rubs, gallop GI/Abdominal exam: Present: soft, tenderness (Mild diffuse tenderness without rebound or guarding), normal bowel sounds. Absent: distended, guarding, rebound, rigid, organomegaly, mass, pulsatile mass, hernia Extremities exam: Present: normal inspection, normal capillary refill. Absent: pedal edema, calf tenderness Back exam: Present: normal inspection. Absent: CVA tenderness (R), CVA tenderness (L) Neurological exam: Present: alert Skin exam: Present: warm, dry, intact, normal color. Absent: rash Course Vital Signs 07/03/21 07/03/21 20:04 22:29 Temperature 98.6 F Pulse Rate 77 74 Respiratory 18 20 Rate Blood Pressure 121/80 126/75 O2 Sat by Pulse 100 100 Oximetry Medical Decision Making - Medical Decision Making The patient denies symptoms of urinary tract infection/urethritis. The patient states he is uncircumcised and suspect that the few white blood cells are from the surface of the skin given lack of symptoms. - Lab Data Result diagrams: 07/03/21 22:26 07/03/21 22: Lab Results 07/03/21 07/03/21 07/03/21 Range/Units 22: 22: 22: WBC 11.9 H (3.8-10.6) k/uL RBC 5.49 (4.30-5.90) m/uL Hgb 17.6 H (13.0-17.5) gm/dL Hct 51.8 (39.0-53.0) % MCV 94.3 (80.0-100.0) fL MCH 32.1 (25.0-35.0) pg MCHC 34.1 (31.0-37.0) g/dL RDW 11.2 L (11.5-15.5) % Plt Count 203 (150-450) k/uL MPV 7.4 Neutrophils % 91 % Lymphocytes % 3 % Monocytes % 4 % Eosinophils % 1 % Basophils % 0 % Neutrophils # 10.8 H (1.3-7.7) k/uL Lymphocytes # 0.4 L (1.0-4.8) k/uL Monocytes # 0.5 (0-1.0) k/uL Eosinophils # 0.1 (0-0.7) k/uL Basophils # 0.0 (0-0.2) k/uL Sodium 139 (137-145) mmol/L Potassium 4.5 (3.5-5.1) mmol/L Chloride 104 (98-107) mmol/L Carbon Dioxide 25 (22-30) mmol/L Anion Gap 10 mmol/L BUN 14 (9-20) mg/dL Creatinine 0.90 (0.66-1.25) mg/dL Est GFR (CKD-EPI)AfAm >90 (>60 ml/min/1.73 sqM) Est GFR (CKD-EPI)NonAf >90 (>60 ml/min/1.73 sqM) Glucose 89 (74-99) mg/dL Calcium 9.7 (8.4-10.2) mg/dL Total Bilirubin 0.8 (0.2-1.3) mg/dL AST 46 (17-59) U/L ALT 33 (4-49) U/L Alkaline Phosphatase 73 (38-126) U/L Total Protein 7.6 (6.3-8.2) g/dL Albumin 4.5 (3.5-5.0) g/dL Amylase 57 (30-110) U/L Lipase 22 L (23-300) U/L Urine Color Yellow Urine Appearance Clear (Clear) Urine pH 5.5 (5.0-8.0) Ur Specific [place] 1.028 (1.001-1.035) Urine Protein Trace H (Negative) Urine Glucose (UA) Negative (Negative) Urine Ketones 3+ H (Negative) Urine Blood Trace H (Negative) Urine Nitrite Negative (Negative) Urine Bilirubin Negative (Negative) Urine Urobilinogen <2.0 (<2.0) mg/dL Ur Leukocyte Esterase Small H (Negative) Urine RBC 1 (0-5) /hpf Urine WBC 9 H (0-5) /hpf Urine Mucus Few H (None) /hpf Disposition Clinical Impression: Abdominal pain Disposition: HOME SELF-CARE Condition: Good Instructions (If sedation given, give patient instructions): Abdominal Pain (ED) Prescriptions: Ondansetron Odt [Zofran ODT] 4 mg PO Q8HR PRN #10 tab PRN Reason: Nausea Is patient prescribed a controlled substance at d/c from ED?: No Referrals: Brian Miller DO [Primary Care Provider] - 1-2 days
[2021-07-03 22:32] VITALS: RESP 20
[2021-07-03 22:42] LABS: Basophils % (A) 0 %; Eosinophils # (A) 0.1 k/uL (0-0.7); Eosinophils % (A) 1 %; HCT 51.8 % (39.0-53.0); HGB 17.6 gm/dL (13.0-17.5); Lymphocytes # (A) 0.4 k/uL (1.0-4.8); Lymphocytes % (A) 3 %; MCH 32.1 pg (25.0-35.0); MCHC 34.1 g/dL (31.0-37.0); MCV 94.3 fL (80.0-100.0); Mean Platelet Volume 7.4; Monocytes # (A) 0.5 k/uL (0-1.0); Monocytes % (A) 4 %; Neutrophils # (A) 10.8 k/uL (1.3-7.7); Neutrophils % (A) 91 %; Platelet Count 203 k/uL (150-450); RBC 5.49 m/uL (4.30-5.90); RDW 11.2 % (11.5-15.5); WBC 11.9 k/uL (3.8-10.6)
[2021-07-03 22:51] LABS: ALT 33 U/L (4-49); AST 46 U/L (17-59); African American GFR (CKD) >90 (>60 ml/min/1.73 sqM); Albumin 4.5 g/dL (3.5-5.0); Alkaline Phosphatase 73 U/L (38-126); Amylase 57 U/L (30-110); Anion Gap 10 mmol/L; Blood Urea Nitrogen 14 mg/dL (9-20); Calcium 9.7 mg/dL (8.4-10.2); Carbon Dioxide 25 mmol/L (22-30); Chloride 104 mmol/L (98-107); Glucose 89 mg/dL (74-99); Lipase 22 U/L (23-300); Non-African American GFR(CKD) >90 (>60 ml/min/1.73 sqM); Potassium 4.5 mmol/L (3.5-5.1); Sodium 139 mmol/L (137-145); Total Bilirubin 0.8 mg/dL (0.2-1.3); Total Protein 7.6 g/dL (6.3-8.2)
--- NOTE | 2021-07-03 23:06 | CT ---
EXAMINATION TYPE: CT abdomen pelvis wo con DATE OF EXAM: 07/03/2021 COMPARISON: None HISTORY: CT DLP: mGycm Automated exposure control for dose reduction was used. Images obtained from the diaphragm to the floor the pelvis without contrast. Lung bases are clear. There is no pleural effusion. Heart size is normal. There is no pericardial eff usion. Liver spleen stomach pancreas gallbladder appear intact. The bile ducts are not dilated. There is no mesenteric edema. There is no ascites or free air. There is no bowel obstruction. There a re clips at the gastroesophageal junction. There is small hiatal hernia. There is no adrenal mass. Kidneys have normal size. There is no hydronephrosis. There is no retroperi toneal adenopathy. Ureters are not dilated. Bladder distends smoothly. There is no free fluid in the pelvis. There is no inguinal hernia. There is no evidence of a pelvic mass. The lumbar vertebra have normal alignment. Posterior elements are intact. There is no compression fra cture. Bony pelvis is intact. Hip joints are intact. Appendix is not seen. There is no sign of thicke freddie appendix. IMPRESSION: No sign of acute abdomen and pelvis.
[2021-07-03 23:10] LABS: Appearance,Urine Clear (Clear); Bilirubin,Urine Negative (Negative); Blood,Urine Trace (Negative); Color,Urine Yellow; Glucose,Urine (UA) Negative (Negative); Ketones,Urine 3+ (Negative); Leukocyte Esterase,Urine Small (Negative); Mucus,Urine Few /hpf; Nitrite,Urine Negative (Negative); PH, Urine 5.5 (5.0-8.0); Protein,Urine Trace (Negative); RBC,Urine 1 /hpf (0-5); Specific Gravity,Urine 1.028 (1.001-1.035); Urobilinogen,Urine <2.0 mg/dL (<2.0); WBC,Urine 9 /hpf (0-5)
[2021-07-03 23:55] VITALS: BP 125/79; PULSE 76; TEMP 98
== END 2021-07-04 00:37 | disposition home or self-care (01) ==
LOC: EC 18:55
DX: R10.9 Unspecified abdominal pain (principal); F17.200 Nicotine dependence, unspecified, uncomplicated; F12.90 Cannabis use, unspecified, uncomplicated; Z72.89 Other problems related to lifestyle
CPT/HCPCS: 36415; 80053; 82150; 83690; 85025; 81001; 74176; 99284; 96374; 96361; J2405

== ENCOUNTER 2021-07-04 08:01 | Inpatient (IN) | payer BC ==
[2021-07-04] MEDS ORDERED: SODIUM CHLORIDE 0.9% 500 ML 500 ML IV STA (08:36)
[2021-07-04] MEDS ORDERED: ONDANSETRON 4 MG/2 ML VIAL IVP STA (08:36)
[2021-07-04] MEDS ORDERED: MORPHINE SULFATE 4 MG/ML SYRINGE IV STA (08:36)
--- NOTE | 2021-07-04 08:40 | ED ---
General Adult HPI - General Chief complaint: Abdominal Pain Stated complaint: revisit - hernia issue Time Seen by Provider: 07/04/21 08:21 Source: patient Mode of arrival: ambulatory Limitations: no limitations - History of Present Illness Initial comments: Dictation was produced using [employer] dictation software. please excuse any grammatical, word or spelling errors. Chief Complaint: 30-year-old male presents with nausea, vomiting and epigastric abdominal pain History of Present Illness: To 30-year-old male who has past medical history of umbilical hernia repair and ileus. He provides history of present illness. Significant other at the bedside. Patient reports that over the last 2 days she's been having nausea vomiting and epigastric abdominal pain. States that he's been having feculent emesis. Has not a bowel movement in several days however still passing gas. He has mild epigastric pain. Patient smokes marijuana daily for the last 7-8 years. He has never been diagnosed with hyperemesis gravidarum. Patient was seen in the emergency department yesterday where computed tomography scan was ordered on the be negative. Patient reports that he has mild epigastric tenderness that radiates to the back. He has h istory of umbilical hernia repair performed by one of our surgeons. Chart review shows that patient had upper scopic hugh fundoplication to treat esophageal reflux disease. In December 2018. There is no documentation of any umbilical hernia repairs performed and are electronic medical record. The ROS documented in this emergency department record has been reviewed and confirmed by me. Those systems with pertinent positive or negative responses have been documented in the HPI. All other systems are other negative and/or noncontributory. PHYSICAL EXAM: General Impression: Alert and oriented x3, not in acute distress HEENT: Normocephalic atraumatic, extra-ocular movements intact, pupils equal and reactive to light bilaterally, mucous membranes moist. Cardiovascular: Heart regular rate and rhythm Chest: Able to complete full sentences, no retractions, no tachypnea Abdomen: abdomen soft, reported palpatory tenderness to the epigastric area, non-distended, no organomegaly Musculoskeletal: Pulses present and equal in all extremities, no peripheral edema Motor: no focal deficits noted Neurological: CN II-XII grossly intact, no focal motor or sensory deficits noted Skin: Intact with no visualized rashes Psych: Normal affect and mood ED course: 30 y Old male presents emergency department for nausea vomiting. He reports feculent emesis. Vital signs upon arrival are within acceptable limits. Patient's well-appearing at the bedside. Physical examination is benign. Laboratory evaluation obtained. CBC, metabolic panel is unremarkable. Acute abdominal series x-ray shows findings concerning for ileus versus enteritis. Given that this is patient's second visit in the last 48 hours and his persistent symptoms concerning for ileus. Patient will be admitted to Dr. Espinoza's service. Dr. Espinoza is agreeable. - Related Data Home Medications Medication Instructions Recorded Confirmed No Known Home Medications 07/04/21 07/04/21 Allergies Allergy/AdvReac Type Severity Reaction Status Date / Time No Known Allergies Allergy Verified 07/04/21 10:07 Review of Systems ROS Statement: Those systems with pertinent positive or pertinent negative responses have been documented in the HPI. ROS Other: All systems not noted in ROS Statement are negative. Past Medical History Past Medical History: No Reported History Additional Past Medical History / Comment(s): abdominal pain History of Any Multi-Drug Resistant Organisms: MRSA Date of last positivie culture/infection: 2007 MDRO Source:: left upper leg Past Surgical History: Hernia Repair Past Anesthesia/Blood Transfusion Reactions: No Reported Reaction Additional Past Anesthesia/Blood Transfusion Reaction / Comment(s): no anesthesia prior Past Psychological History: No Psychological Hx Reported Smoking Status: Current every day smoker Past Alcohol Use History: Occasional Past Drug Use History: Marijuana - Past Family History Mother Family Medical History: Unable to Obtain Additional Family Medical History / Comment(s): patient was adopted General Exam Limitations: no limitations Course Vital Signs 07/04/21 08:05 Temperature 98.8 F Pulse Rate 59 L Respiratory 18 Rate Blood Pressure 123/82 O2 Sat by Pulse 98 Oximetry Medical Decision Making - Lab Data Result diagrams: 07/04/21 08:48 07/04/21 08:48 Lab Results 07/04/21 07/04/21 Range/Units 08:48 08:48 WBC 7.3 (3.8-10.6) k/uL RBC 5.02 (4.30-5.90) m/uL Hgb 16.3 (13.0-17.5) gm/dL Hct 45.8 (39.0-53.0) % MCV 91.2 (80.0-100.0) fL MCH 32.5 (25.0-35.0) pg MCHC 35.6 (31.0-37.0) g/dL RDW 11.7 (11.5-15.5) % Plt Count 208 (150-450) k/uL MPV 7.9 Neutrophils % 77 % Lymphocytes % 11 % Monocytes % 9 % Eosinophils % 1 % Basophils % 0 % Neutrophils # 5.6 (1.3-7.7) k/uL Lymphocytes # 0.8 L (1.0-4.8) k/uL Monocytes # 0.6 (0-1.0) k/uL Eosinophils # 0.1 (0-0.7) k/uL Basophils # 0.0 (0-0.2) k/uL Sodium 138 (137-145) mmol/L Potassium 3.9 (3.5-5.1) mmol/L Chloride 104 (98-107) mmol/L Carbon Dioxide 26 (22-30) mmol/L Anion Gap 8 mmol/L BUN 12 (9-20) mg/dL Creatinine 1.05 (0.66-1.25) mg/dL Est GFR (CKD-EPI)AfAm >90 (>60 ml/min/1.73 sqM) Est GFR (CKD-EPI)NonAf >90 (>60 ml/min/1.73 sqM) Glucose 123 H (74-99) mg/dL Calcium 8.8 (8.4-10.2) mg/dL Total Bilirubin 0.7 (0.2-1.3) mg/dL AST 29 (17-59) U/L ALT 24 (4-49) U/L Alkaline Phosphatase 57 (38-126) U/L Total Protein 6.4 (6.3-8.2) g/dL Albumin 3.6 (3.5-5.0) g/dL Lipase 23 (23-300) U/L Disposition Clinical Impression: Ileus Disposition: HOME SELF-CARE Condition: Fair Is patient prescribed a controlled substance at d/c from ED?: No Referrals: Brian Miller DO [Primary Care Provider] - 1-2 days
[2021-07-04 09:05] LABS: Basophils % (A) 0 %; Eosinophils # (A) 0.1 k/uL (0-0.7); Eosinophils % (A) 1 %; HCT 45.8 % (39.0-53.0); HGB 16.3 gm/dL (13.0-17.5); Lymphocytes # (A) 0.8 k/uL (1.0-4.8); Lymphocytes % (A) 11 %; MCH 32.5 pg (25.0-35.0); MCHC 35.6 g/dL (31.0-37.0); MCV 91.2 fL (80.0-100.0); Mean Platelet Volume 7.9; Monocytes # (A) 0.6 k/uL (0-1.0); Monocytes % (A) 9 %; Neutrophils # (A) 5.6 k/uL (1.3-7.7); Neutrophils % (A) 77 %; Platelet Count 208 k/uL (150-450); RBC 5.02 m/uL (4.30-5.90); RDW 11.7 % (11.5-15.5); WBC 7.3 k/uL (3.8-10.6)
[2021-07-04 09:18] LABS: ALT 24 U/L (4-49); AST 29 U/L (17-59); African American GFR (CKD) >90 (>60 ml/min/1.73 sqM); Albumin 3.6 g/dL (3.5-5.0); Alkaline Phosphatase 57 U/L (38-126); Anion Gap 8 mmol/L; Blood Urea Nitrogen 12 mg/dL (9-20); Calcium 8.8 mg/dL (8.4-10.2); Carbon Dioxide 26 mmol/L (22-30); Chloride 104 mmol/L (98-107); Glucose 123 mg/dL (74-99); Lipase 23 U/L (23-300); Non-African American GFR(CKD) >90 (>60 ml/min/1.73 sqM); Potassium 3.9 mmol/L (3.5-5.1); Sodium 138 mmol/L (137-145); Total Bilirubin 0.7 mg/dL (0.2-1.3); Total Protein 6.4 g/dL (6.3-8.2)
--- NOTE | 2021-07-04 09:21 | XR ---
EXAMINATION TYPE: XR abdomen acute w cxr DATE OF EXAM: 07/04/2021 COMPARISON: CT 07/03/2021 HISTORY: 30-year-old male epigastric abdominal pain TECHNIQUE: Supine, upright, and left side down lateral decubitus views of the abdomen are obtained. FINDINGS: Frontal view of the chest shows normal heart size, aorta, and pulmonary vasculature. No consolidation or pleural effusion. There is no evidence for pneumoperitoneum. Some mildly dilated small bowel loops in the central abdomen measuring up to 3.3 cm with air-fluid le vels. Scattered colonic air is present extending distally to the rectum with a mild stool. Surgical clips below the GE junction. No suspicious calcifications seen. IMPRESSION: 1. Surgical clips below the GE junction probably relates to prior Faye fundoplication. Clinically c orrelate. 2. Mildly dilated central small bowel loops with air-fluid levels measuring up to 3.3 cm. The presenc e of colonic air argues against small bowel obstruction at this time. Consider ileus or enteritis. Cl inical follow-up recommended given the mild small bowel dilatation.
[2021-07-04] MEDS ORDERED: NALOXONE 0.4 MG/ML 1 ML VIAL IV PRN (10:34)
[2021-07-04] MEDS ORDERED: ONDANSETRON 4 MG/2 ML VIAL IVP PRN (10:34)
--- NOTE | 2021-07-04 10:57 | ED ---
Medical Decision Making - Lab Data Result diagrams: 07/04/21 08:48 07/04/21 08:48 Lab Results 07/04/21 07/04/21 Range/Units 08:48 08:48 WBC 7.3 (3.8-10.6) k/uL RBC 5.02 (4.30-5.90) m/uL Hgb 16.3 (13.0-17.5) gm/dL Hct 45.8 (39.0-53.0) % MCV 91.2 (80.0-100.0) fL MCH 32.5 (25.0-35.0) pg MCHC 35.6 (31.0-37.0) g/dL RDW 11.7 (11.5-15.5) % Plt Count 208 (150-450) k/uL MPV 7.9 Neutrophils % 77 % Lymphocytes % 11 % Monocytes % 9 % Eosinophils % 1 % Basophils % 0 % Neutrophils # 5.6 (1.3-7.7) k/uL Lymphocytes # 0.8 L (1.0-4.8) k/uL Monocytes # 0.6 (0-1.0) k/uL Eosinophils # 0.1 (0-0.7) k/uL Basophils # 0.0 (0-0.2) k/uL Sodium 138 (137-145) mmol/L Potassium 3.9 (3.5-5.1) mmol/L Chloride 104 (98-107) mmol/L Carbon Dioxide 26 (22-30) mmol/L Anion Gap 8 mmol/L BUN 12 (9-20) mg/dL Creatinine 1.05 (0.66-1.25) mg/dL Est GFR (CKD-EPI)AfAm >90 (>60 ml/min/1.73 sqM) Est GFR (CKD-EPI)NonAf >90 (>60 ml/min/1.73 sqM) Glucose 123 H (74-99) mg/dL Calcium 8.8 (8.4-10.2) mg/dL Total Bilirubin 0.7 (0.2-1.3) mg/dL AST 29 (17-59) U/L ALT 24 (4-49) U/L Alkaline Phosphatase 57 (38-126) U/L Total Protein 6.4 (6.3-8.2) g/dL Albumin 3.6 (3.5-5.0) g/dL Lipase 23 (23-300) U/L Disposition Clinical Impression: Ileus Disposition: ADMITTED IP TO THIS HOSP Condition: Fair Referrals: Brian Miller DO [Primary Care Provider] - 1-2 days
[2021-07-04] MEDS: MORPHINE SULFATE 4 MG/ML SYRINGE IV PRN ×3 (11:27→20:10)
[2021-07-04] MEDS: SODIUM CHLORIDE 0.9% 1,000 ML IV SCH ×2 (11:28→20:13)
[2021-07-04] MEDS ORDERED: IOPAMIDOL CONTRAST (ORAL USE) VIAL PO PRN (12:47)
--- NOTE | 2021-07-04 13:27 | P.GSHP ---
History of Present Illness H&P Date: 07/04/21 CHIEF COMPLAINT: Abdominal pain HISTORY OF PRESENT ILLNESS: This is a 30-year-old male with a known history of Faye fundoplication. Patient presents to the emergency room with complaints of 2 days of epigastric abdominal pain with nausea and vomiting. He reports that the vomiting started yesterday morning and woke him up. The emesis was yellowish in color and also had fecal material. Patient complaining of dry heaves. He reports multiple episodes of vomiting. He reports about 3 days wit hout a bowel movement. He initially presented to the emergency room yesterday had a computed tomography scan of the abdomen and pelvis without contrast which showed no acute abdomen and pelvis. He was discharged home from the ER. Presented back to the hospital due to continuous vomiting and abdominal pain. Abdominal x-ray had shown findings concerning for possible ileus. He's been afebrile white count normal at 7.3. Patient denies any fever, chills or sweats. PAST MEDICAL HISTORY: None PAST SURGICAL HISTORY: Faye fundoplication MEDICATIONS: See list. ALLERGIES: See list. SOCIAL HISTORY: No illicit drug use. Recreational marijuana use daily. Occasional alcohol use. REVIEW OF SYSTEMS: CONSTITUTIONAL: Denies fever or chills. HEENT: Denies blurred vision, vision changes, or eye pain. Denies hemoptysis CARDIOVASCULAR: Denies chest pain or pressure. RESPIRATORY: No shortness of breath. GASTROINTESTINAL: See HPI for pertinent findings HEMATOLOGIC: Denies bleeding disorders. GENITOURINARY: Denies any blood in urine or increased urinary frequency. SKIN: Denies pruitis. Denies rash. PHYSICAL EXAM: VITAL SIGNS: Reviewed GENERAL: Well-developed in no acute distress. HEENT: No sclera icterus. Extraocular movements grossly intact. Moist buccal mucosa. Head is atraumatic, normocephalic. No nasal drainage. ABDOMEN: Soft. Nondistended. Epigastric tenderness to palpation NEUROLOGIC: Alert and oriented. Cranial nerves II through XII grossly intact. LABORATORY DATA: WBC is 7.3 Hgb 16.3 platelets 208 Sodium 138 potassium 3.9 BUN 12 creatinine 1.05 LFTs normal Lipase 23 COVID-19 not detected IMAGING: Acute abdominal series mildly dilated central small bowel loops with air-fluid levels measuring up to 3.3 cm. The presence of colonic air argues against small bowel obstruction at this time. Consider ileus or enteritis. Clinical follow- up recommended given the mild small bowel dilatation. ASSESSMENT: 1. Epigastric abdominal pain with vomiting and no bowel movement 3 days 2. Possible ileus 3. Possible gastroenteritis PLAN: -Computed tomography scan of abdomen and pelvis with oral contrast ordered for further evaluation of abdominal pain and possible ileus -Keep patient nothing by mouth until after computed tomography scan -Continue IV fluids -Continue anti-emetics -Continue pain medication as -Add GI prophylaxis Protonix and DVT prophylaxis subcu heparin Physician Senior Telecommunications Technician note has been reviewed by physician. Signing provider agrees with the documented findings, assessment, and plan of care. Past Medical History Past Medical History: No Reported History Additional Past Medical History / Comment(s): abdominal pain History of Any Multi-Drug Resistant Organisms: MRSA Date of last positivie culture/infection: 2007 MDRO Source:: left upper leg Past Surgical History: Hernia Repair Past Anesthesia/Blood Transfusion Reactions: No Reported Reaction Additional Past Anesthesia/Blood Transfusion Reaction / Comment(s): no anesthesia prior Past Psychological History: No Psychological Hx Reported Smoking Status: Current every day smoker Past Alcohol Use History: Occasional Past Drug Use History: Marijuana - Past Family History Mother Family Medical History: Unable to Obtain Additional Family Medical History / Comment(s): patient was adopted Medications and Allergies Home Medications Medication Instructions Recorded Confirmed Type No Known Home Medications 07/04/21 07/04/21 History Allergies Allergy/AdvReac Type Severity Reaction Status Date / Time No Known Allergies Allergy Verified 07/04/21 10:07 Surgical - Exam Vital Signs Temp Pulse Resp BP Pulse Ox 98.8 F 59 L 18 123/82 98 07/04/21 08:05 07/04/21 08:05 07/04/21 08:05 07/04/21 08:05 07/04/21 08:05 Results - Labs 07/04/21 08:48 07/04/21 08:48 Abnormal Lab Results - Last 24 Hours (Table) 07/04/21 07/04/21 Range/Units 08:48 08:48 Lymphocytes # 0.8 L (1.0-4.8) k/uL Glucose 123 H (74-99) mg/dL Diabetes panel 07/04/21 Range/Units 08:48 Sodium 138 (137-145) mmol/L Potassium 3.9 (3.5-5.1) mmol/L Chloride 104 (98-107) mmol/L Carbon Dioxide 26 (22-30) mmol/L BUN 12 (9-20) mg/dL Creatinine 1.05 (0.66-1.25) mg/dL Glucose 123 H (74-99) mg/dL Calcium 8.8 (8.4-10.2) mg/dL AST 29 (17-59) U/L ALT 24 (4-49) U/L Alkaline Phosphatase 57 (38-126) U/L Total Protein 6.4 (6.3-8.2) g/dL Albumin 3.6 (3.5-5.0) g/dL Calcium panel 07/04/21 Range/Units 08:48 Calcium 8.8 (8.4-10.2) mg/dL Albumin 3.6 (3.5-5.0) g/dL Pituitary panel 07/04/21 Range/Units 08:48 Sodium 138 (137-145) mmol/L Potassium 3.9 (3.5-5.1) mmol/L Chloride 104 (98-107) mmol/L Carbon Dioxide 26 (22-30) mmol/L BUN 12 (9-20) mg/dL Creatinine 1.05 (0.66-1.25) mg/dL Glucose 123 H (74-99) mg/dL Calcium 8.8 (8.4-10.2) mg/dL Adrenal panel 07/04/21 Range/Units 08:48 Sodium 138 (137-145) mmol/L Potassium 3.9 (3.5-5.1) mmol/L Chloride 104 (98-107) mmol/L Carbon Dioxide 26 (22-30) mmol/L BUN 12 (9-20) mg/dL Creatinine 1.05 (0.66-1.25) mg/dL Glucose 123 H (74-99) mg/dL Calcium 8.8 (8.4-10.2) mg/dL Total Bilirubin 0.7 (0.2-1.3) mg/dL AST 29 (17-59) U/L ALT 24 (4-49) U/L Alkaline Phosphatase 57 (38-126) U/L Total Protein 6.4 (6.3-8.2) g/dL Albumin 3.6 (3.5-5.0) g/dL
[2021-07-04] MEDS: PANTOPRAZOLE 40 MG/10 ML VIAL IVP SCH (14:06)
--- NOTE | 2021-07-04 15:24 | CT ---
EXAMINATION TYPE: CT abdomen pelvis w con DATE OF EXAM: 07/04/2021 COMPARISON: CT abdomen and pelvis from yesterday HISTORY: Abdominal pain and vomiting. CT DLP: 757.3 mGycm, Automated Exposure Control for Dose Reduction was Utilized. CONTRAST: CT scan of the abdomen and pelvis is performed with oral and with IV Contrast, patient injected with 100 mL of Isovue M300. FINDINGS: LUNG BASES: Bilateral nodular subareolar gynecomastia is redemonstrated. Dependent atelectasis left l kar base. LIVER/GB: No significant abnormality is appreciated. PANCREAS: No significant abnormality is seen. SPLEEN: No significant abnormality is seen. ADRENALS: No significant abnormality is seen. KIDNEYS: No significant abnormality is seen. BOWEL: Oral contrast only reaches level of the ileal loops in the lower abdomen and pelvis. Patient h as little intra-abdominal fat. Both findings make evaluation of the bowel suboptimal. Low-lying cecum in the right pelvis anteriorly. No suspicious small or large bowel dilatation. Surgical changes just below diaphragmatic hiatus from - fundoplication surgery are redemonstrated. Contrast is cleared fro m stomach which is poorly distended making evaluation of this level is suboptimal. PROSTATE/SEMINAL VESICLES: No gross abnormality seen. LYMPH NODES: No greater than 1cm abdominal or pelvic lymph nodes are appreciated. OSSEOUS STRUCTURES: Sacralized L5 vertebra redemonstrated. OTHER: Subtle mass effect and narrowing of celiac artery origin and sagittal image 67 without greater than 50% diameter loss. IMPRESSION: No bowel obstruction. No significant new or acute finding from recent CT to account for p atient's symptoms of pain and vomiting.
[2021-07-04] MEDS: HEPARIN SODIUM,PORCINE/PF 5,000 UNIT/0.5 ML SYRINGE SQ SCH (20:10)
[2021-07-05] MEDS: MORPHINE SULFATE 4 MG/ML SYRINGE IV PRN (02:05)
[2021-07-05] MEDS: HYDROmorphone 1 MG/ML 1 ML SYRINGE IVP PRN ×4 (02:41→23:37)
[2021-07-05] MEDS: SODIUM CHLORIDE 0.9% 1,000 ML IV SCH ×4 (03:35→23:39)
[2021-07-05] MEDS: HEPARIN SODIUM,PORCINE/PF 5,000 UNIT/0.5 ML SYRINGE SQ SCH ×2 (08:09→20:53)
[2021-07-05] MEDS: PANTOPRAZOLE 40 MG/10 ML VIAL IVP SCH (08:09)
[2021-07-05] MEDS ORDERED: HYDROcodone/APAP 5-325MG 1 EACH TAB PO PRN (09:53)
--- NOTE | 2021-07-05 12:37 | P.PN ---
Subjective Progress Note Date: 07/05/21 CHIEF COMPLAINT: Abdominal pain HISTORY OF PRESENT ILLNESS: Patient had increased abdominal pain in the e pigastric area during the night. He has required the IV Dilaudid. His pain is better controlled this morning. Computed tomography scan abdomen and pelvis with contrast showed no bowel obstruction. No significant new or acute findings recent CT to account for patient's symptoms of pain and vomiting. Patient does still report having a gallbladder. HIDA scan has been ordered. Afebrile. No new labs for today Patient seen and examined with Dr. johnson PHYSICAL EXAM: VITAL SIGNS: Reviewed. GENERAL: Well-developed in no acute distress. HEENT: No sclera icterus. Extraocular movements grossly intact. Moist buccal mucosa. Head is atraumatic, normocephalic. ABDOMEN: Soft. Nondistended. NEUROLOGIC: Alert and oriented. Cranial nerves II through XII grossly intact. ASSESSMENT: 1. Epigastric abdominal pain with vomiting PLAN: -HIDA scan ordered to rule out any gallbladder disease contributing to patient's symptoms -Continue IV fluids -Add [place] for pain control. Discussed with patient to try and not use the IV pain medication -Advance diet to low-fat after HIDA scan completed Physician Social Work Manager note has been reviewed by physician. Signing provider agrees with the documented findings, assessment, and plan of care. Objective - Vital Signs Vital signs: Vital Signs Temp 98.2 F 07/05/21 04:31 Pulse 78 07/05/21 04:31 Resp 18 07/05/21 04:31 BP 125/69 07/05/21 04:31 Pulse Ox 99 07/05/21 04:31 Intake & Output 07/04/21 07/05/21 07/05/21 18:59 06:59 18:59 Intake Total 400 600 Balance 400 600 Weight 77.111 kg 77.111 kg Intake: Intake, IV Titration 400 Amount Sodium Chloride 0.9% 1, 400 000 ml @ 130 mls/hr IV . [id number] [facility] Rx#:[id number] Oral 600 Other: Voiding Method Toilet # Voids 2 1 - Labs CBC & Chem 7: 07/04/21 08:48 07/04/21 08:48
[2021-07-05 12:41] LABS: Glucose,Whole Blood 87 mg/dL (75-99)
--- NOTE | 2021-07-05 18:21 | NM ---
EXAMINATION TYPE: NM hepatobiliary w CCK DATE OF EXAM: 07/05/2021 COMPARISON: NONE HISTORY: Abdominal pain TECHNIQUE: After the intravenous administration of 5.2 mCi Tc 99m Mebrofenin hepatobiliary scintigrap hy is performed. Immediate images post injection. FINDINGS: There is prompt uptake of the tracer by the liver that has normal size and contour. Gallbladder is no t definitely opacified with tracer. 1.5 mcg of Kinevac was injected. No significant change. There is no focal liver defect. At 2 hours tracer is essentially cleared from the liver. No definite gallbladder seen. There is tracer persistent accumulation in the right upper quadrant. It is not renate r if this is in the gallbladder or in the duodenum. In any event there is no contraction. IMPRESSION: Delayed or absent visualization of the gallbladder. No gallbladder definite contraction. This could r elate to cholecystitis or significant gallbladder dysfunction. No focal liver defect. No evidence of common bile duct obstruction.
[2021-07-06] MEDS: HYDROmorphone 1 MG/ML 1 ML SYRINGE IVP PRN ×2 (02:48→06:17)
[2021-07-06 04:32] VITALS: BP 114/61; PULSE 64; RESP 18; TEMP 97.9
[2021-07-06] MEDS: SODIUM CHLORIDE 0.9% 1,000 ML IV SCH (06:19)
[2021-07-06] MEDS: HEPARIN SODIUM,PORCINE/PF 5,000 UNIT/0.5 ML SYRINGE SQ SCH (09:26)
[2021-07-06] MEDS: PANTOPRAZOLE 40 MG/10 ML VIAL IVP SCH (09:27)
== END 2021-07-06 10:06 | disposition home or self-care (01) | DRG 390 ==
LOC: EC 08:01 → 5NMEDONC 11:02
PROVIDERS: ADMIT Surgery; ATTEND Surgery
DX: K56.7 Ileus, unspecified (principal); K52.9 Noninfective gastroenteritis and colitis, unspecified; Z20.822 Contact with and (suspected) exposure to COVID-19; F17.200 Nicotine dependence, unspecified, uncomplicated; F12.90 Cannabis use, unspecified, uncomplicated; Z86.14 Personal history of Methicillin resistant Staphylococcus aureus infection; Z98.890 Other specified postprocedural states
CPT/HCPCS: 36415; 74022; 74177; 78227; 80053; 83690; 85025; 87635; 96361; 96374; 96375; 99285

== ENCOUNTER 2021-08-27 11:32 | Emergency (ER) | payer BC ==
[2021-08-27 11:42] VITALS: RESP 18
[2021-08-27] MEDS ORDERED: HYDROcodone/APAP 5-325MG 1 EACH TAB PO STA (11:53)
[2021-08-27] MEDS ORDERED: PENICILLIN V POTASSIUM 250 MG TAB PO STA (12:00)
--- NOTE | 2021-08-27 12:03 | ED ---
General Adult HPI - General Chief complaint: Dental/Oral Stated complaint: Tooth pain Time Seen by Provider: 08/27/21 11:46 Source: patient, RN notes reviewed Mode of arrival: ambulatory Limitations: no limitations - History of Present Illness Initial comments: 30-year-old male presents to the emergency department for evaluation of dental pain. Patient states he has had pain on the upper and left lower left sides of his mouth for the past 2 days. Reports taking Tylenol, Motrin, using peroxide rinses, and topical clove oil with minimal improvement. Patient states he does not have a dentist and has had minimal preventative oral care. Also complains of body aches and is requesting a Covid test. Denies fever, chills, headache, cough, congestion, shortness of breath, abdominal pain, nausea, vomiting, diarrhea, dysuria, or hematuria. - Related Data Home Medications Medication Instructions Recorded Confirmed Prilosec? 1 dose PO DIRECTED PRN 08/08/21 Previous Rx's Medication Instructions Recorded Acetaminophen Tab [Tylenol] 650 mg PO Q6H #30 tab 08/15/21 Docusate [Colace] 100 mg PO BID #20 capsule 08/15/21 Ibuprofen [Motrin] 600 mg PO Q6HR PRN #40 tab 08/15/21 oxyCODONE HCL [OxyIR] 5 mg PO Q6H PRN 3 Days #10 tab 08/15/21 Ibuprofen [Motrin] 600 mg PO Q8HR PRN #30 tab 08/27/21 Penicillin V Potassium [Pen Vee K] 500 mg PO QID #40 tablet 08/27/21 Allergies Allergy/AdvReac Type Severity Reaction Status Date / Time No Known Allergies Allergy Verified 08/27/21 11:42 Review of Systems ROS Statement: Those systems with pertinent positive or pertinent negative responses have been documented in the HPI. ROS Other: All systems not noted in ROS Statement are negative. 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 History of Any Multi-Drug Resistant Organisms: MRSA Date of last positivie culture/infection: 2007 MDRO Source:: left upper leg Past Surgical History: Cholecystectomy, Hernia Repair Additional Past Surgical History / Comment(s): DOMENICA FUNDIPLICATION (12/2018) Past Anesthesia/Blood Transfusion Reactions: No Reported Reaction Additional Past Anesthesia/Blood Transfusion Reaction / Comment(s): no anesthesia prior Past Psychological History: No Psychological Hx Reported Smoking Status: Current every day smoker Past Alcohol Use History: Occasional Past Drug Use History: Marijuana - Past Family History Mother Family Medical History: Unable to Obtain Additional Family Medical History / Comment(s): patient was adopted General Exam Limitations: no limitations (Well-developed, well-nourished male in no acute distress. Initial temperature 98.3, pulse 85, respirations 18, blood pressure 145/77, pulse ox 99% on room air.) General appearance: alert, in no apparent distress ENT exam: Present: TM's normal bilaterally Expanded Mouth exam: Present: normal external inspection. Absent: drooling Teeth exam: Present: dental caries (multiple teeth with obvious dental caries.), other (multiple broken and missing teeth; no evidence of abscess formation) Throat exam: normal inspection Neck exam: Present: normal inspection. Absent: tenderness, meningismus, lymphadenopathy Respiratory exam: Present: normal lung sounds bilaterally. Absent: respiratory distress, wheezes, rales, rhonchi, stridor Cardiovascular Exam: Present: regular rate, normal rhythm, normal heart sounds. Absent: systolic murmur, diastolic murmur, rubs, gallop, clicks GI/Abdominal exam: Present: soft, normal bowel sounds. Absent: distended, tenderness, guarding, rebound, rigid Neurological exam: Present: alert, oriented X3, CN II-XII intact Psychiatric exam: Present: normal affect, normal mood Course Vital Signs 08/27/21 08/27/21 11:40 13:06 Temperature 98.3 F 98.2 F Pulse Rate 85 80 Respiratory 18 18 Rate Blood Pressure 145/77 140/72 O2 Sat by Pulse 99 98 Oximetry Medical Decision Making - Medical Decision Making 30-year-old male presents to the emergency department for evaluation of dental pain and requesting a Covid test due to exposure. Upon exam, patient has poor oral hygiene and evidence of multiple dental caries. Also has several broken and missing teeth. No evidence of abscess or soft tissue swelling. Vital signs are stable. Patient is afebrile. He did test positive for Covid. Instructed to follow-up with dentist after his 10 day period of isolation. He will be instructed to continue home remedies for symptomatic treatment of dental pain including clove oil application, oral rinses, and is prescribed Motrin for pain and antibiotic for possible infection. He was instructed to treat Covid symptoms alternating Tylenol and Motrin. Decongestant was suggested for symptomatic treatment. Return parameters were discussed in detail. Patient verbalizes understanding and agrees with this plan. This patient's care was discussed with my attending Dr. Tavares. - Lab Data Lab Results 08/27/21 Range/Units 12:06 Coronavirus (PCR) Detected A (Not Detectd) Disposition Clinical Impression: COVID-19, Dental caries Disposition: HOME SELF-CARE Condition: Stable Instructions (If sedation given, give patient instructions): Coronavirus Disease 2019 (COVID-19), Toothache (ED) Additional Instructions: Your Covid test was positive. You should isolate for 10 days from symptom onset. Alternate Tylenol and Motrin for fever control. May take oral decongestants as needed for symptomatic treatment. Also consider taking a multivitamin or Vitamin C, D, and Zinc. Penicillin is to be taken for dental infection. Please follow up with the [facility] dental clinic. [facility] [place] [address]. Phone number for new patients or [phone] for existing patients. Call as soon as possible, however you should schedule your appointment for ten days from onset of your COVID symptoms. Return to the emergency department with any new, worsening, or concerning symptoms. Prescriptions: Ibuprofen [Motrin] 600 mg PO Q8HR PRN #30 tab PRN Reason: Pain Penicillin V Potassium [Pen Vee K] 500 mg PO QID #40 tablet Is patient prescribed a controlled substance at d/c from ED?: No Referrals: Brian Miller DO [Primary Care Provider] - 1-2 days Time of Disposition: 12:54
[2021-08-27 13:09] VITALS: BP 140/72; PULSE 80; TEMP 98.2
== END 2021-08-27 13:06 | disposition home or self-care (01) ==
LOC: EC 11:32
DX: U07.1 COVID-19 (principal); K02.9 Dental caries, unspecified; F17.200 Nicotine dependence, unspecified, uncomplicated
CPT/HCPCS: 87635; 99283